=== PATIENT | female | born 1930 | race Caucasian/White ===

== ENCOUNTER 2017-01-31 15:17 | Emergency (ER) | payer OTHER, BC ==
[~2017-01-31] VITALS: Ht 154.9 cm; Wt 70.6 kg
[2017-01-31] MEDS ORDERED: CLEOCIN300 MG PO (17:50)
[2017-01-31] MEDS ORDERED: PERCOCET 5/31 TABLET PO (17:50)
[2017-01-31] MEDS ORDERED: AMLODIPINE-OLM1 EAC1 PO (18:35)
[2017-01-31] MEDS ORDERED: LISINOPRIL20 MG PO (18:37)
[2017-01-31] MEDS ORDERED: ASPIRIN81 M2 PO (18:38)
[2017-01-31] MEDS ORDERED: CARVEDILOL6.25 MG PO (18:38)
[2017-01-31] MEDS ORDERED: ATORVASTATIN CA10 MG PO (18:39)
[2017-01-31 19:34] VITALS: BP 147/91
== END 2017-01-31 19:36 | disposition home or self-care (01) ==
LOC: EME 15:17
PROC: 0PSJXZZ Reposition Left Radius, External Approach (ICD-10-PCS; principal; 2017-01-31)
DX: S02.31XA Fracture of orbital floor, right side, initial encounter for closed fracture (principal); S52.502A Unspecified fracture of the lower end of left radius, initial encounter for closed fracture; W01.0XXA Fall on same level from slipping, tripping and stumbling without subsequent striking against object, initial encounter; Y93.01 Activity, walking, marching and hiking; Y92.480 Sidewalk as the place of occurrence of the external cause; I10 Essential (primary) hypertension; E78.5 Hyperlipidemia, unspecified; Z88.0 Allergy status to penicillin
CPT/HCPCS: 70450; 70486; 73100; 73110; 99281; 99285; J2270; S0020